=== PATIENT | male | born 1980 | race Two or more races ===

== ENCOUNTER 2018-09-09 10:41 | Emergency (ER) | payer OTHER ==
[~2018-09-09] VITALS: Ht 154.9 cm; Wt 66.8 kg
[2018-09-09] MEDS ORDERED: HYDROcodone/APAP 5/325 TABLET ONE (11:04)
[2018-09-09] MEDS ORDERED: KETOROLAC 30 MG/1 ML ONE (11:04)
[2018-09-09] MEDS ORDERED: KETOROLAC 60 MG/2 ML IM ONE (12:00)
[2018-09-09] MEDS ORDERED: HYDROcodone/APAP 5/325 TABLET PO ONE (12:00)
[2018-09-09 13:45] VITALS: BP 128/89
== END 2018-09-09 13:48 | disposition home or self-care (01) ==
LOC: ED 13:30
DX: S39.012A Strain of muscle, fascia and tendon of lower back, initial encounter (principal); M54.16 Radiculopathy, lumbar region; X50.9XXA Other and unspecified overexertion or strenuous movements or postures, initial encounter; Y93.89 Activity, other specified; Y92.69 Other specified industrial and construction area as the place of occurrence of the external cause; Y99.8 Other external cause status
CPT/HCPCS: 72110; 96372; 99283; J1885

== ENCOUNTER 2018-12-27 13:12 | Outpatient (CLI) | payer OTHER ==
[2018-12-27 14:37] LABS: BASOPHILS # (AUTO) 0.04 x10^3/uL (0-0.1); BASOPHILS % (AUTO) 0 % (0-1); EOSINOPHILS # (AUTO) 0.21 x10^3/uL (0-0.4); EOSINOPHILS % (AUTO) 2 % (1-7); LYMPHOCYTES # (AUTO) 2.04 x10^3/uL (1-3.4); LYMPHOCYTES % (AUTO) 20 % (22-44); MD NO; MEAN CORPUSCULAR HEMOGLOBIN 28.3 pg (27.5-34.5); MEAN CORPUSCULAR HGB CONC 33.3 g/dL (33.2-36.2); MEAN PLATELET VOLUME 7.8 fL (7.4-10.4); MONOCYTES # (AUTO) 0.53 x10^3/uL (0.2-0.8); MONOCYTES % (AUTO) 5 % (2-9); NEUTROPHILS # (AUTO) 7.25 x10^3/uL (1.8-6.8); NEUTROPHILS % (AUTO) 72 % (42-75); PLATELET COUNT 320 x10^3/uL (130-400); RED BLOOD COUNT 5.64 x10^6/uL (4.38-5.82); RED CELL DISTRIBUTION WIDTH 13.1 % (9.4-14.8)
[2018-12-27 14:44] LABS: INTERNATIONAL NORMALIZED RATIO 0.98 (0.93-1.1); PROTHROMBIN TIME 10.3 Seconds (9.6-11.5)
[2018-12-27 14:45] LABS: ALANINE AMINOTRANSFERASE 43 U/L (12-78); ALBUMIN 4.1 g/dL (3.4-5.0); ANION GAP 4 mmol/L (5-15); CALCIUM 9.1 mg/dL (8.5-10.1); CHLORIDE 112 mmol/L (98-107); CREATININE 0.97 mg/dL (0.7-1.3)
[2018-12-27 14:48] LABS: ALKALINE PHOSPHATASE 101 U/L (45-117); BILIRUBIN,TOTAL 0.6 mg/dL (0.2-1.0); TOTAL PROTEIN 8.3 g/dL (6.4-8.2)
[2018-12-27] MEDS ORDERED: None at this Time (14:50)
[2018-12-27 15:01] LABS: MICROSCOPIC NOT IND
[2018-12-27 15:38] LABS: HCT (SEDRATE) 47.9 % (39.2-51.8)
== END 2018-12-27 23:59 | disposition home or self-care (01) ==
LOC: STAR 13:12
PROVIDERS: ATTEND Orthopaedic Surgery Orthopaedic Surgery of the Spine
DX: Z01.818 Encounter for other preprocedural examination (principal); M54.16 Radiculopathy, lumbar region
CPT/HCPCS: 36415; 71046; 80053; 80074; 81003; 85025; 85610; 85651; 85730; 87806; 93005; G0475

== ENCOUNTER 2019-01-03 10:00 | Day surgery (SDC) | payer OTHER ==
[~2019-01-03] VITALS: Ht 154.9 cm; Wt 76.8 kg
[2019-01-03 08:00] VITALS: BP 136/88
== END 2019-01-03 18:03 | disposition home or self-care (01) ==
LOC: OUT 10:00
PROVIDERS: ATTEND Orthopaedic Surgery Orthopaedic Surgery of the Spine
DX: M51.16 Intervertebral disc disorders with radiculopathy, lumbar region (principal); Z79.899 Other long term (current) drug therapy
CPT/HCPCS: 36415; 63030; 72100; 85025; 85651; 86140; J0171; J0690; J2405; J2704; J3010; J7120; J3370